=== PATIENT | female | born 1990 | race Caucasian/White ===

== ENCOUNTER 2017-07-31 03:15 | Inpatient (IN) | payer BC ==
--- NOTE | 2017-07-31 03:57 | ER Document Report ---
ED Medical Screen (RME) - General Stated Complaint: VAGINAL BLEEDING Time Seen by Provider: 07/31/17 03:43 Notes: Patient is currently 3 weeks and complains of vaginal bleeding in which she had an increased amount of bleeding 1 week ago that lessened and then started to increase again yesterday and then today became much more severe. Patient is passing large multiple clots and has bright red vaginal bleeding. Patient is presently tachycardic, pale and complains of feeling lightheaded. Dr. Mccrary consulted and to bedside immediately. I have greeted and performed a rapid initial assessment of this patient. A comprehensive ED assessment and evaluation of the patient, analysis of test results and completion of the medical decision making process will be conducted by additional ED providers. Physical Exam - Genitourinary Vaginal bleeding: Heavy
[2017-07-31] MEDS ORDERED: MISOPROSTOL 0.2 MG TABLET PO ONE ×2 (04:01→09:00)
[2017-07-31 04:05] LABS: ABSOLUTE EOSINOPHILS # (AUTO) 0.1 10^3/uL (0.0-0.6); ABSOLUTE LYMPHOCYTES (AUTO) 1.7 10^3/uL (0.5-4.7); ABSOLUTE MONOCYTES (AUTO) 0.4 10^3/uL (0.1-1.4); ABSOLUTE NEUT (AUTO) 3.3 10^3/uL (1.7-8.2); BASOPHILS % (AUTO) 0.3 % (0-2); EOSINOPHILS % (AUTO) 1.7 % (0-6); HEMATOCRIT 26.4 % (36.0-47.0); HEMOGLOBIN 8.8 g/dL (12.0-15.5); LYMPHOCYTES % (AUTO) 31.2 % (13-45); MEAN CORPUSCULAR HEMOGLOBIN 27.9 pg (27.0-33.4); MEAN CORPUSCULAR HGB CONC 33.3 g/dL (32.0-36.0); MEAN CORPUSCULAR VOLUME 84 fl (80-97); MONOCYTES % (AUTO) 6.5 % (3-13); PLATELET COUNT 258 10^3/uL (150-450); RED BLOOD COUNT 3.14 10^6/uL (3.72-5.28); RED CELL DISTRIBUTION WIDTH 14.8 % (11.5-14.0); SEGMENTED NEUTROPHILS % (AUTO) 60.3 % (42-78); TOTAL CELLS COUNTED % (AUTO) 100 %; WHITE BLOOD COUNT 5.4 10^3/uL (4.0-10.5)
--- NOTE | 2017-07-31 04:06 | ER Document Report ---
ED General - General Mode of Arrival: Medic Information source: Patient <MEL OLMOS - Last Filed: 07/31/17 07:03> <HOLLEY JONES - Last Filed: 07/31/17 07:11> - General Chief Complaint: Vaginal Bleeding Stated Complaint: VAGINAL BLEEDING Time Seen by Provider: 07/31/17 03:43 Notes: Patient is a 27 year old female, currently 3 weeks , presents to the emergency department via EMS complaining of vaginal bleeding onset 1 week ago worsening today. Patient states approximately 1 week ago she had some vaginal bleeding that initially subsided but worsened yesterday 07/30/2017 and became more severe today further stating she has had a copious amount of large blood clots and bright red blood. Patient delivered full term with no complications. Patient is not breast feeding. Patient currently takes Adderall. (MEL OLMOS) - Related Data Allergies/Adverse Reactions: No Known Allergies Allergy (Unverified 07/31/17 06:42) Past Medical History - General Information source: Patient - Social History Smoking Status: Current Every Day Smoker Frequency of alcohol use: Occasional Drug Abuse: None Family History: Reviewed & Not Pertinent <MEL OLMOS - Last Filed: 07/31/17 07:03> Review of Systems - Review of Systems Constitutional: No symptoms reported EENT: No symptoms reported Cardiovascular: No symptoms reported Respiratory: No symptoms reported Gastrointestinal: No symptoms reported Genitourinary: No symptoms reported Female Genitourinary: See HPI, Heavy/abnormal periods Musculoskeletal: No symptoms reported Skin: No symptoms reported Hematologic/Lymphatic: No symptoms reported Neurological/Psychological: No symptoms reported <MEL OLMOS - Last Filed: 07/31/17 07:03> Physical Exam <MEL OLMOS - Last Filed: 07/31/17 07:03> <HOLLEY JONES - Last Filed: 07/31/17 07:11> - Vital signs Vitals: Pulse Ox 98 07/31/17 03:15 - Notes Notes: GENERAL: Alert, interacts well. Appears pale. HEAD: Normocephalic, atraumatic. EYES: Pupils equal, round, and reactive to light. Extraocular movements intact. ENT: Oral mucosa moist, tongue midline. NECK: Full range of motion. Supple. Trachea midline. HEART: Regular rate and rhythm. No murmurs, gallops, or rubs. EXTREMITIES: Moves all 4 extremities spontaneously. NEUROLOGICAL: Alert and oriented x3. Normal speech. PSYCH: Normal affect, normal mood. SKIN: Pale. Warm, dry, normal turgor. No rashes or lesions noted. PELVIC: Gross amount of bright red blood with copious amounts of clots and active bleeding. (MEL OLMOS) Course - Laboratory Result Diagrams: 07/31/17 03:30 07/31/17 03:30 <MEL OLMOS - Last Filed: 07/31/17 07:03> - Laboratory Result Diagrams: 07/31/17 03:30 07/31/17 03:30 <HOLLEY JONES - Last Filed: 07/31/17 07:11> - Re-evaluation Re-evalutation: 07/31/17 04:13 Patient heart rate blood pressure dropped to 69/37. Dr. Linn is aware of change in condition and is on the way to the hospital. She agrees with emergency blood and rectal Cytotec. (MEL OLMOS) 07/31/17 04:23 Emergency release blood has been ordered, patient is now more awake, pressures have been recycled and blood pressure is now back up to 103/67. 07/31/17 04:49 Blood pressure has improved, now 102/57, awake and alert. Patient will be observed on Dr. Linn's service. Transvaginal US will be ordered to look for retained products of conception. 07/31/17 07:00 This is a late note however on initial examination patient was tachycardic but not hypotensive, she was pale but not in extremis, patient was initially getting very slight fluid resuscitation and was going to be examined by Dr. Linn however patient then became very pale, became slightly nauseated and then had a syncopal episode during which she became quite hypotensive and bradycardic, she had several PVCs and a sinus pause of approximately 2-3 seconds after which time she regained consciousness. Patient then had a second large bore IV started, 2 L of crystalloid were infused, 2 units of emergency release blood were requested and given, as noted above Dr. Linn was called in emergently and did come to the bedside. By this time patient had already started receiving her blood, blood pressure had normalized, vaginal bleeding was continuing but was significantly slower compared to when I performed the exam previously. Patient is admitted to Dr. Linn service, transvaginal ultrasound was ordered per Dr. Linn's request, on her review it shows possible retained products of conception, she has been placed on the schedule for a D&C this morning. Patient remains stable at this point with a heart rate of 121, blood pressure 102/62, respiratory rate 16 and pulse ox of 99% on room air. Hemoglobin is 8.8. (HOLLEY JONES) - Vital Signs Vital signs: Temp Pulse Resp BP Pulse Ox 97.8 F 22 H 103/69 99 07/31/17 05:00 07/31/17 06:50 07/31/17 06:45 07/31/17 06:50 - Laboratory Laboratory results interpreted by me: 07/31/17 07/31/17 07/31/17 03:30 03:30 04:11 RBC 3.14 L Hgb 8.8 L Hct 26.4 L RDW 14.8 H Chloride 110 H Calcium 8.3 L Total Protein 5.0 L Albumin 3.1 L Crossmatch See Detail - EKG Interpretation by Me Additional EKG results interpreted by me: 07/31/17 04:50 EKG shows sinus tachycardia at a rate of 105, slight left axis deviation, normal intervals, no ST segment elevations or depressions, no T-wave inversions per my interpretation. (HOLLEY JONES) Critical Care Note - Critical Care Note Total time excluding time spent on procedures (mins): 45 - Contacting consultants, mangaging hypotension and organizing blood transfusions. <MEL OLMOS - Last Filed: 07/31/17 07:03> Discharge <MEL OLMOS - Last Filed: 07/31/17 07:03> - Discharge Admitting Provider: [facility] Unit Admitted: Post - 2nd floor <HOLLEY JONES - Last Filed: 07/31/17 07:11> - Discharge Clinical Impression: hemorrhage Qualifiers: hemorrhage type: unspecified Qualified Code(s): O72.1 - Other immediate hemorrhage Condition: Fair Disposition: ADMITTED OBSERVATION Scribe Attestation: 07/31/17 07:03 I personally performed the services described in the documentation, reviewed and edited the documentation which was dictated to the scribe in my presence, and it accurately records my words and actions. (HOLLEY JONES) Scribe Documentation - Scribe Written by Aarti:: Aarti Nelson, 07/31/2017 04:08 acting as scribe for :: Hermann <MEL OLMOS - Last Filed: 07/31/17 07:03>
[2017-07-31] MEDS ORDERED: ONDANSETRON HCL INJ/PF 4 MG/2 ML SDV ONE ×2 (04:08→07:38)
[2017-07-31 04:09] LABS: INTERNATIONAL RATION (INR) 1.12; PROTHROMBIN TIME 14.9 SEC (11.4-15.4)
[2017-07-31 04:10] LABS: PARTIAL THROMBOPLASTIN TIME 29.5 SEC (23.5-35.8)
[2017-07-31] MEDS ORDERED: NORMAL SALINE 250 ML IV PRN (04:11)
[2017-07-31 04:19] LABS: ALANINE AMINOTRANSFERASE 26 U/L (9-52); ALBUMIN 3.1 g/dL (3.5-5.0); ALKALINE PHOSPHATASE 69 U/L (38-126); ANION GAP 11 (5-19); ASPARTATE AMINO TRANSFERASE 15 U/L (14-36); BILIRUBIN,DIRECT 0.2 mg/dL (0.0-0.4); BILIRUBIN,TOTAL 0.6 mg/dL (0.2-1.3); BLOOD UREA NITROGEN 8 mg/dL (7-20); CALCIUM 8.3 mg/dL (8.4-10.2); CARBON DIOXIDE 23 mmol/L (22-30); CHLORIDE 110 mmol/L (98-107); GLUCOSE 103 mg/dL (75-110); POTASSIUM 3.6 mmol/L (3.6-5.0); SODIUM 143.7 mmol/L (137-145)
[2017-07-31] MEDS ORDERED: MISOPROSTOL 0.1 MG TABLET ONE ×2 (04:19→04:21)
[2017-07-31] MEDS ORDERED: MISOPROSTOL 0.2 MG TABLET PR ONE (04:23)
[2017-07-31] MEDS ORDERED: FENTANYL CITRATE INJ/PF 100 MCG/2 ML AMPUL IV ONE (04:47)
[2017-07-31] MEDS ORDERED: DOXYCYCLINE HYCLATE 100 MG in NORMAL SALINE 250 ML IV PRN (05:00)
--- NOTE | 2017-07-31 05:35 | PDOC H&P ---
History of Present Illness Admission Date/PCP: 07/31/17 04:55 Patient complains of: heavy vaginal bleeding in the period History of Present Illness: FELICIA GUDINO is a 27 year old female three weeks post from normal vaginal delivery at term with no complications. Began having intermittent heavy bleeding approximately 1 week ago that has worsened over the week. Indicates pads saturated within minutes and bleeding consists of large clots that would "cover the bathtub" Past Medical History 1 Female Year: Delivery: Spontaneous Vaginal Delivery Social History Smoking Status: Current Every Day Smoker Family History Family History: Reviewed & Not Pertinent, Other - indicates mother was labeled a "bleeder". dx not known Parental Family History Reviewed: Yes Children Family History Reviewed: Yes Sibling(s) Family History Reviewed.: Yes Physical Exam - Physical Exam General appearance: PRESENT: cooperative, mild distress, well-developed, other - overall pallor Head exam: PRESENT: atraumatic Eye exam: PRESENT: conjunctiva pink Mouth exam: PRESENT: moist Vascular exam: PRESENT: normal capillary refill - Gynecological Exam Labia: normal Urethra: normal Introitus: normal Perineum: normal, other - evidence of significant bleeding Vagina: normal, other - moderate blood in vault Cervix: normal, other - slightly dilated Cervix: other - approximately 1/2 cm dilated Uterus: normal, other - firm Adhexa: normal Result Status: Pending Assessment & Plan - Time Time Spent: 30 to 50 Minutes Critical Time spent with patient: 15-24 minutes Anticipated discharge: Home Within: within 48 hours - Inpatient Certification Based on my medical assessment, after consideration of the patient's comorbidities, presenting symptoms, or acuity I expect that the services needed warrant INPATIENT care.: Yes I certify that my determination is in accordance with my understanding of Medicare's requirements for reasonable and necessary INPATIENT services [42 CFR 412.3e].: Yes Medical Necessity: Need Close Monitoring Due to Risk of Patient Decompensation - Plan Summary Plan Summary: obtain imaging. NPO status for possible D&C. Counseled on possible need for more aggressive surgery. Provera now to help control current bleeding.
--- NOTE | 2017-07-31 06:06 | RADIOLOGY REPORT (SQ) ---
EXAM DESCRIPTION: U/S OB TRANSVAGINAL W/O DOP CLINICAL HISTORY: 27 years, Female, post- vaginal bleeding COMPARISON: None. TECHNIQUE: Transvaginal LIMITATIONS: None. FINDINGS: 12.5 x 6 x 5 cm uterus, 1.5 cm thickened heterogeneous, hyperemic endometrium, 2.5 cm cervical length with a fluid collection within the cervical canal measuring 5 x 2.5 x 1.7 cm slowly moving toward the vagina throughout exam. 2.4 cm right ovary is of normal size, shape, echotexture, and vascularity. Left ovarian fossa is unremarkable. Left ovary is not directly visualized. Minimal free fluid in the pelvis. IMPRESSION: Hemorrhage/clot material at the level of the cervix consistent with clinical history of vaginal bleeding.
[2017-07-31] MEDS ORDERED: FENTANYL CITRATE INJ/PF 100 MCG/2 ML AMPUL ONE (07:37)
[2017-07-31] MEDS ORDERED: MIDAZOLAM 2 MG/2 ML INJ ONE (07:37)
[2017-07-31] MEDS ORDERED: DEXAMETHASONE SOD PHOSPHATE INJ 4 MG/1 ML VIAL ONE (07:38)
[2017-07-31] MEDS ORDERED: PROPOFOL INJ 200 MG/20 ML VIAL IV ONE (07:38)
--- NOTE | 2017-07-31 07:53 | EKG REPORT ---
SEVERITY:- OTHERWISE NORMAL ECG - SINUS TACHYCARDIA : Confirmed by: Wm Chavarria MD 31-Jul-2017 07:52:18
[2017-07-31] MEDS ORDERED: DOXYCYCLINE HYCLATE 100 MG in DEXTROSE 5%-WATER 250 ML IV PRN (07:54)
[2017-07-31] MEDS ORDERED: FAMOTIDINE INJ/PF 20 MG/2 ML SDV IV PRN (07:54)
[2017-07-31] MEDS ORDERED: RINGERS SOLUTION,LACTATED 1,000 ML IV PRN (07:54)
[2017-07-31 08:02] LABS: HEMATOCRIT 27.1 % (36.0-47.0); HEMOGLOBIN 9.2 g/dL (12.0-15.5); MEAN CORPUSCULAR HGB CONC 33.9 g/dL (32.0-36.0); MEAN CORPUSCULAR VOLUME 83 fl (80-97); PLATELET COUNT 237 10^3/uL (150-450); RED BLOOD COUNT 3.27 10^6/uL (3.72-5.28); RED CELL DISTRIBUTION WIDTH 14.9 % (11.5-14.0); WHITE BLOOD COUNT 8.1 10^3/uL (4.0-10.5)
[2017-07-31] MEDS ORDERED: CEFAZOLIN INJ 1 GM VIAL ONE (08:17)
[2017-07-31] MEDS ORDERED: FENTANYL CITRATE INJ/PF 100 MCG/2 ML AMPUL IV PRN ×3 (08:36)
[2017-07-31] MEDS ORDERED: PROMETHAZINE HCL INJ 25 MG/1 ML VIAL IV PRN ×3 (08:36→08:53)
[2017-07-31] MEDS ORDERED: MEPERIDINE HCL/PF INJ 25 MG/1 ML DISP.SYRIN IV PRN (08:36)
[2017-07-31] MEDS ORDERED: DIPHENHYDRAMINE HCL 50 MG/ML VIAL IV PRN (08:36)
[2017-07-31] MEDS ORDERED: ACETAMINOPHEN WITH CODEINE #3 TABLET PO PRN ×2 (08:53)
[2017-07-31] MEDS ORDERED: PROMETHAZINE HCL 25 MG SUPP.RECT PR PRN (08:53)
[2017-07-31] MEDS ORDERED: MAGNESIUM HYDROXIDE SUSP 30 ML UDCUP PO PRN (08:53)
[2017-07-31] MEDS ORDERED: ACETAMINOPHEN 650 MG SUPP.RECT PR PRN (08:53)
[2017-07-31] MEDS ORDERED: PROMETHAZINE HCL 25 MG TABLET PO PRN (08:53)
[2017-07-31] MEDS ORDERED: BENZOCAINE/MENTHOL AEROSOL SPRAY 56 ML TOP PRN (08:53)
[2017-07-31] MEDS ORDERED: NA PHOS,M-B/NA PHOS,DI-BA (ADULT) 133 ML ENEMA PR PRN (08:53)
[2017-07-31] MEDS ORDERED: ZOLPIDEM TARTRATE 5 MG TABLET PO PRN (08:53)
[2017-07-31] MEDS ORDERED: OXYTOCIN/NORMAL SALINE 20 UNIT/1,000 ML RTUINJ IV PRN (08:53)
[2017-07-31] MEDS ORDERED: DIPH/PERTUSS(ACELL)/TETANUS VAC/PF 0.5 ML SYR (>=10YO) IM PRN (08:53)
[2017-07-31] MEDS ORDERED: MEASLES,MUMPS&RUBELLA VACC/PF 0.5 ML VIAL SUBCUT PRN (08:53)
[2017-07-31] MEDS ORDERED: GLYCERIN/WITCH HAZEL LEAF 1 EACH MED..PAD TP PRN (08:53)
[2017-07-31] MEDS ORDERED: DIPHENHYDRAMINE HCL 25 MG CAPSULE PO PRN (08:53)
[2017-07-31] MEDS ORDERED: DIBUCAINE 1% OINTMENT 28 GM TP PRN (08:53)
[2017-07-31] MEDS ORDERED: PSEUDOEPHEDRINE HCL 30 MG TABLET PO PRN (08:53)
--- NOTE | 2017-07-31 09:03 | Operative Report ---
Operative Report DATE OF SURGERY: 07/31/17 PREOPERATIVE DIAGNOSIS: hemorrhage POSTOPERATIVE DIAGNOSIS: Same OPERATION: D&C SURGEON: CHELSEA SANTIZO ANESTHESIA: GA TISSUE REMOVED OR ALTERED: Uterine contents COMPLICATIONS: None ESTIMATED BLOOD LOSS: 100 cc INTRAOPERATIVE FINDINGS: Uterus sounded to 10 cm PROCEDURE: Patient was taken back to the OR and placed in supine position. General anesthesia was induced. She is placed in the dorsolithotomy position using Jim stirrups. Her perineum was prepared and draped in sterile fashion. Bladder was drained with a red rubber catheter. A weighted speculum was placed in the anterior lip cervix grasped with a tenaculum. Sounded to 10 cm before and at the end of the case. There was active bleeding from the cervix. The cervix was dilated and did not need additional dilatation. Used a large curette and remove the uterine contents. This appeared to be mostly blood clot perhaps some small pieces of decidual-like tissue. I did not see any retained placenta. My impression is that the bleeding is probably from the placental implantation site. At the end of the case all instruments were removed patient was placed back in supine position taken recovery room in stable condition.
[2017-07-31] MEDS ORDERED: PRENATAL VITAMIN W DHA CAPSULE PO SCH (10:00)
[2017-07-31] MEDS ORDERED: MEDROXYPROGESTERONE ACET 10 MG TABLET PO SCH (10:00)
[2017-07-31] MEDS ORDERED: SENNOSIDES/DOCUSATE 8.6-50 MG 1 EACH TABLET PO SCH (10:00)
[2017-07-31] MEDS ORDERED: FAMOTIDINE 20 MG TABLET PO SCH (10:00)
[2017-07-31] MEDS: FERROUS SULFATE 325 MG TABLET PO SCH ×2 (12:05→17:39)
[2017-07-31] MEDS: DOCUSATE SODIUM 100 MG CAPSULE PO SCH ×2 (12:05→17:39)
[2017-07-31] MEDS ORDERED: IBUPROFEN 800 MG TABLET PO SCH (14:00)
--- NOTE | 2017-07-31 16:16 | Discharge Summary ---
Discharge Summary (SDC) - Discharge Final Diagnosis: hemorrage Date of Surgery: 07/31/17 Discharge Date: 07/31/17 Condition: Fair Treatment or Instructions: Home to rest. Begin an iron a day. Discharge Activity: Pelvic Rest Home Care Assistance: None Needed Report the Following to Your Physician Immediately: Fever over 101 Degrees, Unusual Bleeding
[2017-07-31 16:23] VITALS: BP 104/51
--- NOTE | 2017-08-06 10:42 | PDOC DISCHARGE SUMMARY ---
General - Admit/Disc Date/PCP Admission Date/Primary Care Provider: 07/31/17 06:30 Discharge Date: 07/31/17 - Additional Information Resuscitation Status: Full Code Discharge Diet: Regular Discharge Activity: Pelvic Rest Home Medications: No Home Medications 07/31/17 History of Present Illness History of Present Illness: FELICIA GUDINO is a 27 year old female presenting post delivery with a hemorrhage. Hospital Course Hospital Course: She was admitted and underwent a d and c which returned very little tissue. Her bleeding was much improved and she was later sent home. Physical Exam - Physical Exam Vital Signs: Temp Pulse Resp BP Pulse Ox 98.6 F 97 18 104/51 L 98 07/31/17 17:06 07/31/17 17:06 07/31/17 17:06 07/31/17 16:05 07/31/17 17:06 General appearance: PRESENT: no acute distress, well-developed, well-nourished GI/Abdominal exam: PRESENT: normal bowel sounds, soft. ABSENT: distended, guarding, mass, organolmegaly, rebound, tenderness - Gynecological Exam Labia: normal Urethra: normal Introitus: normal Perineum: normal, other - evidence of significant bleeding Vagina: normal, other - moderate blood in vault Cervix: normal, other - slightly dilated Cervix: other - approximately 1/2 cm dilated Uterus: normal, other - firm Adhexa: normal Result Laboratory Results: 07/31/17 07:40 Impressions: Obstetrics Ultrasound 07/31/17 04:47 IMPRESSION: Hemorrhage/clot material at the level of the cervix consistent with clinical history of vaginal bleeding. Plan Discharge Plan: She was sent home with iron and instructions for pelvic rest. Followup later in the week to review the pathology.
== END 2017-07-31 18:56 | disposition home or self-care (01) | DRG 774 ==
LOC: ER 03:15 → EH 04:55 → OBSVTOIN 06:30 → 2S 09:28
PROVIDERS: ADMIT Obstetrics & Gynecology; ATTEND Obstetrics & Gynecology
PROC: 30233N1 Transfusion of Nonautologous Red Blood Cells into Peripheral Vein, Percutaneous Approach (ICD-10-PCS; 2017-07-31)
PROC: 10D07Z8 Extraction of Products of Conception, Other, Via Natural or Artificial Opening (ICD-10-PCS; principal; 2017-07-31 08:00)
DX: O72.2 Delayed and secondary postpartum hemorrhage (principal); I95.9 Hypotension, unspecified; R00.1 Bradycardia, unspecified; O99.335 Smoking (tobacco) complicating the puerperium; F17.200 Nicotine dependence, unspecified, uncomplicated; R55 Syncope and collapse
CPT/HCPCS: 36415; 36430; 76817; 80053; 85025; 85027; 85610; 85730; 86850; 86900; 86901; 86920; 88305; 93005; 93010; 940; 96361; 96374; 96375; 99291; J0690; J1100; J2250; J2405; J2704; J3010; J3490; J7050; P9016